=== PATIENT | female | born 1955 | race Caucasian/White ===

== ENCOUNTER 2017-03-16 10:00 | Emergency (ER) | payer SELFPAY ==
[~2017-03-16] VITALS: Ht 20.3 cm; Wt 54.4 kg
--- NOTE | 2017-03-16 09:56 | ER Report ---
History and Physical Time Seen By MD: 09:55 HPI/ROS CC: Back pain, tramadol withdrawal HPI: 62-year-old female presents to the emergency Department per EMS. She is requesting tramadol. She has chronic back pain and leg pain for which she takes tramadol. Her buys it online. She is stop taking the tramadol on her own volition. She states that her is upset with her because she wakes him up secondary to pain. Her sensation is slightly slow. She appears to be slightly inebriated. She is stating that her pain is an 8-9 out of 10. She has no other complaints. Pain is throbbing and aching in nature and in her lower back. She denies any loss of bowel or bladder. In reviewing her old records she has repeated ER visits for drug seeking behavior and tramadol. She denies any chest pain chest pressure, shortness of breath, diaphoresis, nausea vomiting, palpitations. ROS: 12 point review of systems essentially negative other than what's mentioned in history of present illness. NURSES AND OLD MEDICAL RECORDS: Reviewed PMH: Reviewed SURGICAL HX: Reviewed FAMILY HX: Noncontributory SOCIAL HX: Patient is denying smoking alcohol or illicit drugs. She is as a home. VITAL SIGNS: Reviewed CONSTITUTIONAL: 62-year-old female in minimal distress. PHYSICAL EXAM: HEENT: Pupils equal round reactive to light and accommodate, Lips dry mucous membranes moist gums nonbleeding uvula midline and rises equally with phonation. NECK: Neck supple, thyroid not appreciated. Trachea midline and rises equally with phonation. CARDIAC: S1-S2 regular rate rhythm no murmurs rubs or gallops. LUNGS: Lungs clear bilaterally posteriorly in all richards. Good air movement. ABDOMEN: Abdomen soft, nondistended, bowel sounds active in all 4 quadrants. MUSCULOSKELETAL: Strength 5 out of 5 x 4 extremities, no deformities noted. NEUROLOGIC: Patient alert and oriented by 3. Afshan Coma Scale is 15. Allergies: Coded Allergies: No Known Drug Allergies (Verified , 11/17/15) Home Meds Active Scripts Clonidine Hcl (CLONIDINE HCL) 0.1 Mg Tablet, 0.1 MG PO BID Y for palpitations or tachycardia, #20 TAB Prov:GEORGIA LIRIANO DO 11/20/15 Clonidine Hcl (CLONIDINE HCL) 0.1 Mg Tablet, 0.1 MG PO DIRECTED, #12 TAB 0 Refills Take one tablet every 8 hours as needed for racing heart, shakiness and sweats during withdrawal from Tramadol Prov:NANCY GARDNER MD 11/17/15 Reported Medications Lisinopril (LISINOPRIL) 20 Mg Tablet, 20 MG PO QDAY, TAB 11/17/15 Discontinued Scripts Promethazine Hcl (PROMETHAZINE HCL) 25 Mg Supp.rect, 25 MG RC Q4H Y for NAUSEA/ VOMITING, #12 SUPP.RECT Prov:GEORGIA LIRIANO DO 11/20/15 Ondansetron (ZOFRAN ODT) 4 Mg Tab.rapdis, 4 MG PO Q6H Y for NAUSEA/VOMITING, # 20 TAB.RAMEZ 0 Refills Prov:NANCY GARDNER MD 11/17/15 Tramadol Hcl (TRAMADOL HCL) 50 Mg Tablet, 50-100 MG PO Q6-8H for PAIN, #30 MG TAKE ONE TO TWO TABLETS BY MOUTH EVERY FOUR TO SIX HOURS NEEDED Prov:ZACH TROTTER MD 08/18/14 Hx Smoking: Yes (6 daily) Smoking Status: Current: Every Day Smoker Exposure to Second Hand Smoke?: Yes Hx Substance Use Disorder: Yes (RX PAIN MEDS (TRAMADOL)) Hx Alcohol Use: Yes (RARE) Constitutional Vital Sign - Last 24 Hours 03/16/17 03/16/17 03/16/17 03/16/17 09:57 10:00 10:15 10:30 Temp 98.7 Pulse 99 100 98 97 Resp 16 8 29 B/P (MAP) 141/93 123/95 (104) 136/94 (108) Pulse Ox 97 96 97 98 O2 Delivery Room Air Intake and Output 03/16/17 03/16/17 03/17/17 15:00 23:00 07:00 Output Total 50 ml Balance -50 ml Medical Decision Making Data Points Result Diagram: 03/16/17 1005 03/16/17 1005 Laboratory Hematology Test 03/16/17 10:05 03/16/17 10:21 03/16/17 10:33 Red Blood Count 4.55 M/uL (4.17-5.56) Mean Corpuscular Volume 100.5 fL (80.0-96.0) Mean Corpuscular Hemoglobin 34.2 pg (26.0-33.0) Mean Corpuscular Hemoglobin Concent 34.0 g/dL (32.0-36.0) Red Cell Distribution Width 13.7 % (11.5-14.5) Mean Platelet Volume 9.2 fL (7.2-11.1) Neutrophils (%) (Auto) 90.0 % (39.4-72.5) Lymphocytes (%) (Auto) 6.0 % (17.6-49.6) Monocytes (%) (Auto) 3.3 % (4.1-12.4) Eosinophils (%) (Auto) 0.2 % (0.4-6.7) Basophils (%) (Auto) 0.5 % (0.3-1.4) Nucleated RBC Relative Count (auto) 0.0 /100WBC Neutrophils # (Auto) 5.4 K/uL (2.0-7.4) Lymphocytes # (Auto) 0.4 K/uL (1.3-3.6) Monocytes # (Auto) 0.2 K/uL (0.3-1.0) Eosinophils # (Auto) 0.0 K/uL (0.0-0.5) Basophils # (Auto) 0.0 K/uL (0.0-0.1) Nucleated RBC Absolute Count (auto) 0.00 K/uL Peripheral Blood Smear No Y/N Sodium Level 130 mmol/L (137-145) Potassium Level 4.4 mmol/L (3.5-5.0) Chloride Level 97 mmol/L (98-107) Carbon Dioxide Level 20 mmol/L (22-31) Blood Urea Nitrogen 24 mg/dl (7-18) Creatinine 1.40 mg/dl (0.52-1.04) Glomerular Filtration Rate Calc 38.0 Random Glucose 98 mg/dl (75-110) Calcium Level 9.5 mg/dl (8.4-10.2) Salicylates Level < 10 mg/L Salicylate Last Dose Date ? Acetaminophen Level < 10 ug/ml Serum Alcohol < 10 mg/dl Whole Blood Glucose 101 mg/DL (75-110) Urine Color Gloria Urine Clarity Slightly-cloudy Urine pH 5.0 pH (4.8-9.5) Urine Specific [place] 1.023 Urine Protein 100 mg/dL (NEGATIVE) Urine Glucose (UA) Negative mg/dL (NEGATIVE) Urine Ketones Trace mg/dL (NEGATIVE) Urine Blood Small (NEGATIVE) Urine Nitrite Negative (NEGATIVE) Urine Bilirubin Negative (NEGATIVE) Urine Urobilinogen Negative mg/dL (0.2-1.9) Urine Leukocyte Esterase Negative (NEGATIVE) Urine RBC <1 /HPF (0-2/HPF) Urine WBC None /HPF (0-5/HPF) Urine Squamous Epithelial Cells Few /LPF (NONE-FEW) Urine Amorphous Crystals Few /HPF Urine Bacteria Negative /HPF (NONE-FEW) Urine Mucus Few /HPF (NONE-FEW) Urine Opiates Screen Negative Urine Barbiturates Screen Positive Ur Tricyclic Antidepressants Screen Negative Urine Phencyclidine Screen Negative Urine Amphetamines Screen Negative Urine Benzodiazepines Screen Negative Urine Cocaine Screen Negative Urine Cannabinoids Screen Negative Chemistry Test 03/16/17 10:05 03/16/17 10:21 03/16/17 10:33 White Blood Count 6.0 k/uL (4.5-11.0) Red Blood Count 4.55 M/uL (4.17-5.56) Hemoglobin 15.6 g/dL (12.0-16.0) Hematocrit 45.7 % (34.0-47.0) Mean Corpuscular Volume 100.5 fL (80.0-96.0) Mean Corpuscular Hemoglobin 34.2 pg (26.0-33.0) Mean Corpuscular Hemoglobin Concent 34.0 g/dL (32.0-36.0) Red Cell Distribution Width 13.7 % (11.5-14.5) Platelet Count 187 K/uL (150-450) Mean Platelet Volume 9.2 fL (7.2-11.1) Neutrophils (%) (Auto) 90.0 % (39.4-72.5) Lymphocytes (%) (Auto) 6.0 % (17.6-49.6) Monocytes (%) (Auto) 3.3 % (4.1-12.4) Eosinophils (%) (Auto) 0.2 % (0.4-6.7) Basophils (%) (Auto) 0.5 % (0.3-1.4) Nucleated RBC Relative Count (auto) 0.0 /100WBC Neutrophils # (Auto) 5.4 K/uL (2.0-7.4) Lymphocytes # (Auto) 0.4 K/uL (1.3-3.6) Monocytes # (Auto) 0.2 K/uL (0.3-1.0) Eosinophils # (Auto) 0.0 K/uL (0.0-0.5) Basophils # (Auto) 0.0 K/uL (0.0-0.1) Nucleated RBC Absolute Count (auto) 0.00 K/uL Peripheral Blood Smear No Y/N Glomerular Filtration Rate Calc 38.0 Calcium Level 9.5 mg/dl (8.4-10.2) Salicylates Level < 10 mg/L Salicylate Last Dose Date ? Acetaminophen Level < 10 ug/ml Serum Alcohol < 10 mg/dl Whole Blood Glucose 101 mg/DL (75-110) Urine Color Gloria Urine Clarity Slightly-cloudy Urine pH 5.0 pH (4.8-9.5) Urine Specific [place] 1.023 Urine Protein 100 mg/dL (NEGATIVE) Urine Glucose (UA) Negative mg/dL (NEGATIVE) Urine Ketones Trace mg/dL (NEGATIVE) Urine Blood Small (NEGATIVE) Urine Nitrite Negative (NEGATIVE) Urine Bilirubin Negative (NEGATIVE) Urine Urobilinogen Negative mg/dL (0.2-1.9) Urine Leukocyte Esterase Negative (NEGATIVE) Urine RBC <1 /HPF (0-2/HPF) Urine WBC None /HPF (0-5/HPF) Urine Squamous Epithelial Cells Few /LPF (NONE-FEW) Urine Amorphous Crystals Few /HPF Urine Bacteria Negative /HPF (NONE-FEW) Urine Mucus Few /HPF (NONE-FEW) Urine Opiates Screen Negative Urine Barbiturates Screen Positive Ur Tricyclic Antidepressants Screen Negative Urine Phencyclidine Screen Negative Urine Amphetamines Screen Negative Urine Benzodiazepines Screen Negative Urine Cocaine Screen Negative Urine Cannabinoids Screen Negative Toxicology Test 03/16/17 10:05 03/16/17 10:33 Salicylates Level < 10 mg/L Salicylate Last Dose Date ? Acetaminophen Level < 10 ug/ml Serum Alcohol < 10 mg/dl Urine Opiates Screen Negative Urine Barbiturates Screen Positive Ur Tricyclic Antidepressants Screen Negative Urine Phencyclidine Screen Negative Urine Amphetamines Screen Negative Urine Benzodiazepines Screen Negative Urine Cocaine Screen Negative Urine Cannabinoids Screen Negative Urinalysis Test 03/16/17 10:33 Urine Color Gloria Urine Clarity Slightly-cloudy Urine pH 5.0 pH (4.8-9.5) Urine Specific [place] 1.023 Urine Protein 100 mg/dL (NEGATIVE) Urine Glucose (UA) Negative mg/dL (NEGATIVE) Urine Ketones Trace mg/dL (NEGATIVE) Urine Blood Small (NEGATIVE) Urine Nitrite Negative (NEGATIVE) Urine Bilirubin Negative (NEGATIVE) Urine Urobilinogen Negative mg/dL (0.2-1.9) Urine Leukocyte Esterase Negative (NEGATIVE) Urine RBC <1 /HPF (0-2/HPF) Urine WBC None /HPF (0-5/HPF) Urine Squamous Epithelial Cells Few /LPF (NONE-FEW) Urine Amorphous Crystals Few /HPF Urine Bacteria Negative /HPF (NONE-FEW) Urine Mucus Few /HPF (NONE-FEW) ED Course/Re-evaluation ED Course Patient's screen is positive for barbiturates. Patient is with drug-seeking behavior. She does not have a PCP. She has multiple visits to the emergency department for tramadol. Her story does not make sense as she states that her wants her to be taking tramadol and he is ordering tramadol online for her. I reiterated with her that she needs to establish a physician in the community for her medication and that it's inappropriate to continue to come to the emergency department for tramadol. Patient will be discharged home with referral for a PCP. Patient with a plan and in agreement. Decision to Disposition Date: Mar 16, 2017 Decision to Disposition Time: 11:12 Depart Departure Latest Vital Signs Vital Signs Date Time Temp Pulse Resp B/P (MAP) Pulse Ox O2 Delivery O2 Flow Rate FiO2 03/16/17 10:30 97 29 136/94 (108) 98 03/16/17 09:57 98.7 Room Air Impression: Primary Impression: Drug-seeking behavior Condition: Condition Unchanged Disposition: HOME OR SELF-CARE Patient Instructions: Opioid Dependence (ED) Additional Instructions: You have been given a list of physicians in the community. Follow-up with a primary care physician. Visual responsibility to obtain a doctor for your medications. We cannot fill narcotics on a chronic basis in the emergency department. I and the staff wanted to thank you for allowing us to take care of your needs today in the emergency department at [facility]. We have tried to answer all of your questions and concerns. Please feel free to return to the emergency department for any further concerns or unanswered questions. DAWNA SANDHU MD Mar 16, 2017 09:56
[2017-03-16 10:45] LABS: PLATELET COUNT, AUTOMATED 187 K/uL (150-450)
== END 2017-03-16 11:40 | disposition home or self-care (01) ==
LOC: ER 10:03
DX: M54.5 Low back pain (principal); Z76.5 Malingerer [conscious simulation]
CPT/HCPCS: 36416; 80305; 80320; 80329; 81001; 82948; 85025; 99284; A4353; 82310; 82374; 82435; 82565; 82947; 84132; 84295; 84520

== ENCOUNTER → 2017-03-16 | Outpatient (CLI) | payer SELFPAY ==
[~2017-03-16] MED LIST: BUP150 PO; CEP250 PO; CIP500 PO; CIPR-344 PO; CLON-327 PO; CYCL-332 PO; HYDR-3250 PO; LISI20TA29 PO; LOP2 PO; LOR5/325 PO; MIR; ONDA4TAB PO; PEP; PRO25 PO; PROM25SU9 RC; TRAM-420 PO
== END ==
LOC: AMB 09:29
PROVIDERS: ATTEND Nurse Practitioner
DX: M54.5 Low back pain (principal); R53.1 Weakness
CPT/HCPCS: A0425; A0427